=== PATIENT | female | born 2000 | race American Indian/Alaskan Native ===

== ENCOUNTER 2021-08-22 17:04 | Emergency (ER) | payer OTHER ==
--- NOTE | 2021-08-22 17:07 | ERPHSYRPT ---
- History of Present Illness Time Seen by Provider: 08/22/21 17:07 Source: patient Exam Limitations: no limitations Physician History: This is a right-handed 21-year-old female who presents with an accidental laceration to the skin of her left thumb that occurred prior to arrival. Patient and her mother were picking up dogs and trying to cut the plastic tie around the chain and the knife cut her thumb superficially but it was bleeding significantly. Patient's tetanus status is up to date. The laceration site measures approximately 3 to 4 mm. Patient arrives to the emergency department and the laceration site is not bleeding Occurred: just prior to arrival Method of Injury: other (Accidental stab left hand thumb) Quality: aching Severity of Pain-Max: mild Severity of Pain-Current: mild Extremities Pain Location: thumb: left Modifying Factors: Improves With: nothing Associated Symptoms: none Allergies/Adverse Reactions: No Known Drug Allergies Allergy (Unverified 08/22/21 17:14) Home Medications: Citalopram Hydrobromide 20 mg* [ceLEXa 20 MG] 1 tab PO DAILY 08/22/21 [History] Travel Risk - International Travel Have you traveled outside of the country in past 3 weeks: No - Coronavirus Screening Are you exhibiting any of the following symptoms?: No Close contact with a COVID-19 positive Pt in past 14-21 Days: No - Review of Systems Constitutional: No Symptoms Eyes: No Symptoms Ears, Nose, & Throat: No Symptoms Respiratory: No Symptoms Cardiac: No Symptoms Abdominal/Gastrointestinal: No Symptoms Genitourinary Symptoms: No Symptoms Musculoskeletal: Injury (Left thumb laceration) Skin: Other Neurological: No Symptoms (See above) Psychological: No Symptoms Endocrine: No Symptoms Hematologic/Lymphatic: No Symptoms Immunological/Allergic: No Symptoms All Other Systems: Reviewed and Negative - Past Medical History Pertinent Past Medical History: Yes - Past Surgical History Past Surgical History: Yes - Nursing Vital Signs Nursing Vital Signs: Initial Vital Signs Temperature 97.6 F 08/22/21 17:16 Pulse Rate 82 08/22/21 17:16 Respiratory Rate 18 08/22/21 17:16 Blood Pressure 99/78 08/22/21 17:16 O2 Sat by Pulse Oximetry 98 08/22/21 17:16 Pain Scale Pain Intensity 0 - Physical Exam General Appearance: no apparent distress, alert, anxiety Eyes, Ears, Nose, Throat Exam: normal ENT inspection, moist mucous membranes Neck Exam: normal inspection, non-tender, supple, full range of motion Cardiovascular/Respiratory Exam: chest non-tender, no respiratory distress Abdominal Exam: non-tender Back Exam: normal inspection, normal range of motion, No CVA tenderness, No vertebral tenderness Shoulder Exam: normal inspection, non-tender, no evidence of injury Elbow/Forearm Exam: normal inspection, non-tender, no evidence of injury, normal ROM Wrist Exam: normal inspection, non-tender, no evidence of injury, normal ROM Hand Exam: normal ROM, laceration (3 to 4 mm laceration. Not bleeding. Tendon function is intact. Patient is neurovascularly intact) Neuro/Tendon Exam: normal sensation, normal motor functions, normal tendon functions, responds to pain Mental Status Exam: alert, oriented x 3, cooperative Skin Exam: normal color, warm, dry SpO2 Interpretation: normal O2 Delivery: Room Air Procedures - Laceration/Wound Repair Left Lateral Finger Time of Procedure: 17:30 Wound Location: Left, hand (Thumb) Wound Length (cm): 0.4 Wound's Depth, Shape: superficial Wound Explored: clean (No foreign body noted. Examination occurred in a bloodless field to the base.) Irrigated: Yes Hibiclens Prep: Yes Wound Repaired With: Steri-strips, Dermabond (And benzoin) - Course Nursing assessment & vital signs reviewed: Yes - Progress Progress: improved Counseled pt/family regarding: diagnosis - Departure Departure Disposition: Home Clinical Impression: Laceration of left thumb Condition: Stable Critical Care Time: No Additional Instructions: Keep the current bandage dry and clean for 24 hours. After 24 hours may wash your hands daily. Leave the Steri-Strips in place. Use Tylenol and ibuprofen for pain control
[2021-08-22 17:21] VITALS: BP 99/78
[2021-08-22 18:18] VITALS: PULSE 70; O2SAT 97
== END 2021-08-22 18:18 | disposition home or self-care (01) ==
LOC: ED 17:04
DX: S61.012A Laceration without foreign body of left thumb without damage to nail, initial encounter (principal); W26.0XXA Contact with knife, initial encounter
CPT/HCPCS: 12001; 99283